=== PATIENT | male | born 1980 | race Caucasian/White ===

== ENCOUNTER 2017-02-22 13:30 | Emergency (ER) | payer BC ==
[2017-02-22] MEDS ORDERED: Ondansetron 4 MG/2 ML SDV IVPUSH ONE (13:36)
[2017-02-22] MEDS ORDERED: Morphine 4 MG/ML Syringe IVPUSH ONE (13:37)
[2017-02-22] MEDS ORDERED: Sodium Chloride 0.9% 1,000 ML IV ONE (13:38)
[2017-02-22] MEDS ORDERED: Morphine 2 MG/ML Syringe IVPUSH ONE (13:54)
[2017-02-22] MEDS ORDERED: HYDROmorphone 1 MG/ML Syringe IM ONE (13:54)
--- NOTE | 2017-02-22 14:08 | CR ---
EXAMINATION: Right ankle HISTORY: Trauma COMPARISON: None TECHNIQUE: 2 views FINDINGS: There are oblique moderately displaced and angulated fractures through the distal fibula a nd distal tibial metaphysis noted. The medial aspect of the ankle mortise appears widened. Bone mine ralization is otherwise normal. The talar dome appears intact. IMPRESSION: Oblique moderately displaced distal tibia and fibula fractures.
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
[2017-02-22 19:56] VITALS: BP 121/75
== END 2017-02-22 15:00 ==
LOC: MW.ED 13:30
DX: S82.831A Other fracture of upper and lower end of right fibula, initial encounter for closed fracture (principal); S82.301A Unspecified fracture of lower end of right tibia, initial encounter for closed fracture; V29.9XXA Motorcycle rider (driver) (passenger) injured in unspecified traffic accident, initial encounter; Y92.410 Unspecified street and highway as the place of occurrence of the external cause
CPT/HCPCS: 73600; 96361; 96374; 96375; 99285; G0390; J1170; J2270; J2405; J7040

== ENCOUNTER 2019-01-21 19:16 | Emergency (ER) | payer BC ==
--- NOTE | 2019-01-21 19:25 | EDM.PDOC ---
ED HPI GENERAL MEDICAL PROBLEM - General Chief Complaint: Laceration Stated Complaint: CUT TO RT THUMB Time Seen by Provider: 01/21/19 19:23 Source of Information: Reports: Patient History Limitations: Reports: No Limitations - History of Present Illness INITIAL COMMENTS - FREE TEXT/NARRATIVE: HISTORY AND PHYSICAL: History of present illness: Patient is a 38-year-old male who presents to the emergency room with complaints of a crush injury to the left thumb. He states this occurred earlier this afternoon, and covered it until he was able to present to the emergency room. He denies any numbness or tingling of the affected extremity. Denies any previous injury or trauma the affected extremity. Tetanus has been updated within the last 5 years. Patient denies any fever, chills, headache, change in vision, syncope or near syncope. Denies any chest pain, back pain, shortness of breath or cough. Denies any abdominal pain, nausea, vomiting, diarrhea, constipation or dysuria. Has not noted any blood in urine or stool. Patient has been eating and drinking appropriately. Review of systems: As per history of present illness and below otherwise all systems reviewed and negative. Past medical history: As per history of present illness and as reviewed below otherwise noncontributory. Surgical history: As per history of present illness and as reviewed below otherwise noncontributory. Social history: See social history for further information Family history: As per history of present illness and as reviewed below otherwise noncontributory. Physical exam: General: Well-developed and well-nourished 38-year-old male. Alert and oriented. Nontoxic appearing and in no acute distress. HEENT: Atraumatic, normocephalic, pupils equal and reactive bilaterally, negative for conjunctival pallor or scleral icterus, mucous membranes moist, TMs normal bilaterally, throat clear, neck supple, nontender, trachea midline. No drooling or trismus noted. No meningeal signs. No hot potato voice noted. Lungs: Clear to auscultation, breath sounds equal bilaterally, chest nontender. Heart: S1S2, regular rate and rhythm without overt murmur Abdomen: Soft, nondistended, nontender. Negative for masses or hepatosplenomegaly. Negative for costovertebral tenderness. Pelvis: Stable nontender. Genitourinary: Deferred. Rectal: Deferred. Skin: "X" shaped superficial laceration noted to the lateral aspect of the distal left thumb. This does not involve the nail bed. Otherwise skin is intact , warm, dry. No lesions or rashes noted. Extremities: Crush injury involving the left thumb. He has full range of motion and strength. Cap refill less than 3 seconds. Moves all extremities per self without difficulty or deficits. Neurovascular unremarkable. Neuro: Awake, alert, oriented. Cranial nerves II through XII unremarkable. Cerebellum unremarkable. Motor and sensory unremarkable throughout. Exam nonfocal. Notes: X-ray shows no evidence of fracture, dislocation or bony abnormality. The laceration is too superficial for sutures. I will Dermabond the area and apply nonstick dressing placed. Supportive care measures were reviewed and discussed. Voices understanding and is agreeable to plan of care. Denies any further questions or concerns at this time. Diagnostics: X-ray Therapeutics: None Prescription: None Impression: Laceration Left thumb crush injury Plan: 1. Keep the area clean and dry. Continue to monitor for signs of infection. 2. Tylenol and/or ibuprofen as needed for pain management. 3. Please follow-up with your primary care provider in the next 1-2 days. Return to the ED as needed and as discussed. Definitive disposition and diagnosis as appropriate pending reevaluation and review of above. Left Finger-Thumb Pain Score (Numeric/FACES): 4 - Related Data Allergies Allergy/AdvReac Type Severity Reaction Status Date / Time No Known Allergies Allergy Verified 01/21/19 19:30 Home Meds: Home Meds Esomeprazole Magnesium [Nexium] 20 mg PO DAILY 01/21/19 [History] Fenofibrate 40 mg PO BEDTIME 01/21/19 [History] Past Medical History Cardiovascular History: Reports: High Cholesterol Social & Family History - Family History Family Medical History: Noncontributory - Caffeine Use Caffeine Use: Reports: Coffee Caffeine Use Comment: 2cups/day ED ROS GENERAL - Review of Systems Review Of Systems: ROS reveals no pertinent complaints other than HPI. ED EXAM, SKIN/RASH Exam: See Below (See dictation) Course - Vital Signs Last Recorded V/S: Last Vital Signs Temp 98.1 F 01/21/19 19:27 Pulse 84 01/21/19 19:27 Resp BP 121/74 01/21/19 19:27 Pulse Ox 92 L 01/21/19 19:27 - Orders/Labs/Meds Orders: Active Orders 24 hr Category Date Time Status Fingers Thumb Lt FA [CR] Stat Exams 01/21/19 19:31 Taken Meds: Medications Discontinued Medications Generic Name Dose Route Start Last Admin Trade Name Lucrecia PRN Reason Stop Dose Admin Lidocaine HCl 5 ml 01/21/19 19:31 01/21/19 19:42 Xylocaine-Mpf 1% INJECT 01/21/19 19:32 Not Given ONETIME ONE Octyl Cyanoacrylate 1 applic 01/21/19 19:39 Dermabond Advance TOP 01/21/19 19:40 ONETIME ONE Departure - Departure Time of Disposition: 20:06 Disposition: Home, Self-Care 01 Clinical Impression: Laceration, Crush injury - Discharge Information Instructions: Crush Injury of the Hand, [id number], Laceration Care, Adult, [id number] Referrals: PCP,None [Primary Care Provider] - Forms: ED Department Discharge Additional Instructions: The following information is given to patients seen in the emergency department who are being discharged to home. This information is to outline your options for follow-up care. We provide all patients seen in our emergency department with a follow-up referral. The need for follow-up, as well as the timing and circumstances, are variable depending upon the specifics of your emergency department visit. If you don't have a primary care physician on staff, we will provide you with a referral. We always advise you to contact your personal physician following an emergency department visit to inform them of the circumstance of the visit and for follow-up with them and/or the need for any referrals to a consulting specialist. The emergency department will also refer you to a specialist when appropriate. This referral assures that you have the opportunity for follow-up care with a specialist. All of these measure are taken in an effort to provide you with optimal care, which includes your follow-up. Under all circumstances we always encourage you to contact your private physician who remains a resource for coordinating your care. When calling for follow-up care, please make the office aware that this follow-up is from your recent emergency room visit. If for any reason you are refused follow-up, please contact the [facility] at and asked to speak to the emergency department charge nurse. [facility] [address] [place] [address] [facility] [address] [place] [id number] 1. Keep the area clean and dry. Continue to monitor for signs of infection. Sutures to be removed in 7-10 days. 2. Tylenol and/or ibuprofen as needed for pain management. 3. Please follow-up with your primary care provider in the next 1-2 days. Return to the ED as needed and as discussed. - My Orders Last 24 Hours: My Active Orders 01/21/19 19:31 Fingers Thumb Lt FA [CR] Stat - Assessment/Plan Last 24 Hours: My Active Orders 01/21/19 19:31 Fingers Thumb Lt FA [CR] Stat
[2019-01-21] MEDS ORDERED: Octyl 2-Cyanoacrylate 1 Tube TOP ONE (19:39)
--- NOTE | 2019-01-21 20:03 | CR ---
INDICATION: Crush injury. TECHNIQUE: Three views. FINDINGS: No radiographic evidence of fracture/dislocation/acute bone or joint abnormality. Dictated by Raúl Dutton MD @ Jan 21 2019 8:00PM Signed by Dr. Raúl Dutton @ Jan 21 2019 8:01PM
[2019-01-21 21:34] VITALS: BP 120/76
== END 2019-01-21 20:25 | disposition home or self-care (01) ==
LOC: MW.ED 19:16
DX: S67.02XA Crushing injury of left thumb, initial encounter (principal); S61.012A Laceration without foreign body of left thumb without damage to nail, initial encounter; Z79.899 Other long term (current) drug therapy; E78.00 Pure hypercholesterolemia, unspecified; W23.0XXA Caught, crushed, jammed, or pinched between moving objects, initial encounter
CPT/HCPCS: 12001; 73140; 99283; A9270; 99282